=== PATIENT | male | born 1960 | race Caucasian/White ===

== ENCOUNTER 2019-02-28 11:39 | Emergency (ER) | payer MEDICAID ==
[~2019-02-28] VITALS: Ht 175.3 cm; Wt 63.6 kg
[2019-02-28] MEDS ORDERED: naloxone 0.4 mg/ml inj IV PRN (12:40)
[2019-02-28] MEDS ORDERED: DOXY100C43 PO (13:04)
[2019-02-28 13:20] VITALS: BP 115/77
== END 2019-02-28 13:22 | disposition home or self-care (01) ==
LOC: ER 11:40
DX: L03.116 Cellulitis of left lower limb (principal); L03.115 Cellulitis of right lower limb; F17.200 Nicotine dependence, unspecified, uncomplicated; F10.99 Alcohol use, unspecified with unspecified alcohol-induced disorder; F11.90 Opioid use, unspecified, uncomplicated; Z60.2 Problems related to living alone; Z88.6 Allergy status to analgesic agent; Z88.5 Allergy status to narcotic agent; Z79.899 Other long term (current) drug therapy; Y90.9 Presence of alcohol in blood, level not specified
CPT/HCPCS: 99284